=== PATIENT | female | born 1995 | race African-American/Black ===

== ENCOUNTER 2017-05-18 18:05 | Emergency (ER) | payer BC ==
[~2017-05-18] VITALS: Ht 165.1 cm; Wt 53.4 kg
[~2017-05-18 18:05] MED LIST: AMOXICILLIN500 MG OR; AZITHROMYCIN500 MG PO; BACTRIM DS1 TAB OR; BACTRIM DS1 TAB PO; CIPRO500 MG OR; CIPROFLOXACN500 MG PO; CORTISPORIN OTI10 ML AS; DEPO-PROVER150 MG/ML IM; LORTAB 7.5 PO; NAPROSYN500 MG PO; NITROFUR MAC100 MG PO; NO; NO CURRENT MEDS; NO HOME MEDS; PHENERGAN25 MG/TAB PO; PYRIDIUM200 MG PO; SPRINTEC 2828 DAY PO; ULTRAM50 M1 PO; ZOFRAN4 MG/TAB PO
[2017-05-18] MEDS ORDERED: LISINOPRIL5 MG PO (18:14)
[2017-05-18] MEDS ORDERED: B/P PILL PO (18:15)
[2017-05-18] MEDS ORDERED: [UNRECOGNIZED DRUG - REMARK] PO (18:16)
[2017-05-18 18:49] LABS: HEMATOCRIT 40.3 % (37.0-47.0); HEMOGLOBIN 13.1 g/dl (12.0-16.0); IMMATURE GRANULOCYTES 0.2 % (0.0-1.0); MEAN CELL VOLUME 79.5 fL CALC (80.0-100.0); MEAN CORPUSCULAR HGB 25.8 pG CALC (26.0-32.0); MEAN CORPUSCULAR HGB CONC 32.5 g/L CALC (32.0-36.0); NEUT# 3.86 thou/uL (2.00-7.15); RED BLOOD COUNT 5.07 mill/uL (4.20-5.60); RED CELL DISTRI WIDTH 13.6 % (11.5-15.5)
[2017-05-18 18:53] LABS: URINE BLOOD DIPSTICK NEGATIVE (NEGATIVE); URINE CLARITY CLEAR; URINE COLOR YELLOW; URINE GLUCOSE - DIPSTICK NEGATIVE (NEGATIVE); URINE KETONE 15 mg/dL (NEGATIVE); URINE LEUK ESTERASE NEGATIVE (NEGATIVE); URINE NITRITE - DIPSTICK NEGATIVE (Negative); URINE PROTEIN - DIPSTICK TRACE mg/dL (NEG-TRACE); URINE SPECIFIC GRAVITY >=1.030
[2017-05-18 18:54] LABS: URINE BILIRUBIN - DIPSTICK NEGATIVE (NEGATIVE)
[2017-05-18 19:02] LABS: ALBUMIN 5.1 g/dL (3.2-5.0); ALKALINE PHOSPHATASE 44 u/l (38-126); AMYLASE 123 u/l (30-110); ANION GAP 17 (6-22 (CALC)); BILIRUBIN, TOTAL 1.2 mg/dL (0.0-1.4); BUN 18 mg/dL (7-17); BUN/CREATININE RATIO 26 (12-20 (CALC)); CALCIUM 9.8 mg/dL (8.4-10.2); CARBON DIOXIDE 26 mmol/l (22-30); CHLORIDE 102 mmol/l (95-108); CREATININE 0.7 mg/dL (0.5-1.0); GFR > 60 ML/MIN (>=60 (CALC)); GFR FOR AFR.AMER. > 60 ML/MIN (>=60 (CALC)); GLUCOSE 87 mg/dL (65-105); LIPASE 137 u/l (23-300); POTASSIUM 3.2 mmol/l (3.5-5.1); SGOT/AST 20 u/l (14-36); SGPT/ALT 31 u/l (9-52); SODIUM 141 mmol/l (137-146); TOTAL PROTEIN 8.5 g/dL (6.3-8.2)
[2017-05-18] MEDS ORDERED: PROMETHAZINE25 M1 RE (20:52)
[2017-05-18 21:05] VITALS: BP 118/77
== END 2017-05-18 21:07 | disposition home or self-care (01) | DRG 392 ==
LOC: ED 18:05
DX: K52.9 Noninfective gastroenteritis and colitis, unspecified (principal); I10 Essential (primary) hypertension
CPT/HCPCS: Q9967

== ENCOUNTER 2017-08-24 18:22 | Emergency (ER) | payer SELFPAY ==
[~2017-08-24] VITALS: Ht 165.1 cm; Wt 51.6 kg
[~2017-08-24 18:22] MED LIST changes: +B/P PILL PO; +LISINOPRIL5 MG PO; +PROMETHAZINE25 M1 RE; +[UNRECOGNIZED DRUG - REMARK] PO
[2017-08-24] MEDS ORDERED: NAPROXEN DR500 MG PO (20:00)
[2017-08-24] MEDS ORDERED: KEFLEX500 MG PO (20:12)
[2017-08-24 20:13] VITALS: BP 119/73
== END 2017-08-24 20:15 | disposition home or self-care (01) | DRG 605 ==
LOC: ED 18:22
DX: S51.011A Laceration without foreign body of right elbow, initial encounter (principal); M25.511 Pain in right shoulder; M25.531 Pain in right wrist; M79.641 Pain in right hand; I10 Essential (primary) hypertension; W13.4XXA Fall from, out of or through window, initial encounter; Y93.89 Activity, other specified; Y92.009 Unspecified place in unspecified non-institutional (private) residence as the place of occurrence of the external cause

== ENCOUNTER 2018-01-12 01:51 | Emergency (ER) | payer SELFPAY ==
[~2018-01-12] VITALS: Ht 165.1 cm; Wt 53.6 kg
[~2018-01-12 01:51] MED LIST changes: +KEFLEX500 MG PO; +NAPROXEN DR500 MG PO
[2018-01-12 02:46] VITALS: BP 130/82
== END 2018-01-12 02:59 | disposition home or self-care (01) | DRG 103 ==
LOC: ED 01:51
DX: R51 Headache (principal); I10 Essential (primary) hypertension

== ENCOUNTER 2018-01-14 23:46 | Emergency (ER) | payer SELFPAY ==
[~2018-01-14] VITALS: Ht 165.1 cm; Wt 55.9 kg
[2018-01-15 00:16] LABS: URINE BILIRUBIN - DIPSTICK NEGATIVE (NEGATIVE); URINE BLOOD DIPSTICK NEGATIVE (NEGATIVE); URINE COLOR YELLOW; URINE GLUCOSE - DIPSTICK NEGATIVE (NEGATIVE); URINE KETONE NEGATIVE (NEGATIVE); URINE LEUK ESTERASE NEGATIVE (NEGATIVE); URINE NITRITE - DIPSTICK NEGATIVE (Negative); URINE PROTEIN - DIPSTICK NEGATIVE (NEG-TRACE); URINE UROBILINOGEN - DIPSTICK 0.2 E.U./dL (0.2)
[2018-01-15 00:24] LABS: URINE CLARITY CLEAR
[2018-01-15 01:39] LABS: HEMATOCRIT 35.9 % (37.0-47.0); HEMOGLOBIN 11.2 g/dl (12.0-16.0); MEAN CELL VOLUME 79.4 fL CALC (80.0-100.0); MEAN CORPUSCULAR HGB 24.8 pG CALC (26.0-32.0); MEAN CORPUSCULAR HGB CONC 31.2 g/L CALC (32.0-36.0); NEUT# 2.43 thou/uL (2.00-7.15); RED BLOOD COUNT 4.52 mill/uL (4.20-5.60); RED CELL DISTRI WIDTH 15.2 % (11.5-15.5)
[2018-01-15 01:53] LABS: ALBUMIN 4.8 g/dL (3.2-5.0); ALKALINE PHOSPHATASE 48 u/l (38-126); AMYLASE 137 u/l (30-110); BILIRUBIN, TOTAL 0.5 mg/dL (0.0-1.4); BUN 13 mg/dL (7-17); BUN/CREATININE RATIO 17 (12-20 (CALC)); CARBON DIOXIDE 25 mmol/l (22-30); CHLORIDE 105 mmol/l (95-108); CREATININE 0.7 mg/dL (0.5-1.0); GFR > 60 ML/MIN (>=60 (CALC)); GFR FOR AFR.AMER. > 60 ML/MIN (>=60 (CALC)); LIPASE 142 u/l (23-300); SGPT/ALT 28 u/l (9-52); SODIUM 143 mmol/l (137-146); TOTAL PROTEIN 8.2 g/dL (6.3-8.2)
[2018-01-15 02:00] VITALS: BP 112/67
[2018-01-15 02:08] LABS: ANION GAP 17 (6-22 (CALC)); POTASSIUM 3.9 mmol/l (3.5-5.1); SGOT/AST 36 u/l (14-36)
== END 2018-01-15 02:24 | disposition home or self-care (01) | DRG 392 ==
LOC: ED 23:46
PROVIDERS: Emergency Medicine
DX: R11.10 Vomiting, unspecified (principal); I10 Essential (primary) hypertension

== ENCOUNTER 2018-03-12 17:28 | Emergency (ER) | payer OTHER ==
[~2018-03-12] VITALS: Ht 165.1 cm; Wt 55.8 kg
[2018-03-12 18:30] LABS: IMMATURE GRANULOCYTES 0.2 % (0.0-1.0); MEAN CELL VOLUME 79.4 fL CALC (80.0-100.0); MEAN CORPUSCULAR HGB 24.9 pG CALC (26.0-32.0); MEAN CORPUSCULAR HGB CONC 31.4 g/L CALC (32.0-36.0); NEUT# 2.31 thou/uL (2.00-7.15); RED BLOOD COUNT 4.41 mill/uL (4.20-5.60); RED CELL DISTRI WIDTH 15.2 % (11.5-15.5)
[2018-03-12 18:42] LABS: ANION GAP 16 (6-22 (CALC)); BUN 15 mg/dL (7-17); BUN/CREATININE RATIO 20 (12-20 (CALC)); CARBON DIOXIDE 23 mmol/l (22-30); CHLORIDE 106 mmol/l (95-108); CREATININE 0.8 mg/dL (0.5-1.0); GFR > 60 ML/MIN (>=60 (CALC)); GFR FOR AFR.AMER. > 60 ML/MIN (>=60 (CALC)); POTASSIUM 3.8 mmol/l (3.5-5.1); SODIUM 141 mmol/l (137-146)
[2018-03-12 19:37] LABS: BARBITURATES NEGATIVE (NEGATIVE); COCAINE NEGATIVE (NEGATIVE); METHADONE NEGATIVE (NEGATIVE); OXCYCODONE NEGATIVE (NEGATIVE); TETRAHYDROCANNABIONOL NEGATIVE (NEGATIVE); TRICYLIC ANTIDEPRESSANTS NEGATIVE (NEGATIVE)
[2018-03-12 21:02] VITALS: BP 112/63
== END 2018-03-12 21:00 | disposition home or self-care (01) | DRG 103 ==
LOC: ED 17:28
PROVIDERS: Family Medicine
DX: G43.909 Migraine, unspecified, not intractable, without status migrainosus (principal); R07.9 Chest pain, unspecified; I10 Essential (primary) hypertension
CPT/HCPCS: Q9967

== ENCOUNTER 2018-05-16 08:33 | Emergency (ER) | payer SELFPAY ==
[~2018-05-16] VITALS: Ht 165.1 cm; Wt 60.0 kg
[2018-05-16 09:20] LABS: HEMATOCRIT 39.4 % (37.0-47.0); HEMOGLOBIN 12.5 g/dl (12.0-16.0); MEAN CELL VOLUME 80.6 fL CALC (80.0-100.0); MEAN CORPUSCULAR HGB 25.6 pG CALC (26.0-32.0); MEAN CORPUSCULAR HGB CONC 31.7 g/L CALC (32.0-36.0); NEUT# 1.56 thou/uL (2.00-7.15); RED BLOOD COUNT 4.89 mill/uL (4.20-5.60); RED CELL DISTRI WIDTH 14.5 % (11.5-15.5)
[2018-05-16 09:21] LABS: URINE BILIRUBIN - DIPSTICK NEGATIVE (NEGATIVE); URINE BLOOD DIPSTICK NEGATIVE (NEGATIVE); URINE COLOR YELLOW; URINE GLUCOSE - DIPSTICK NEGATIVE (NEGATIVE); URINE KETONE NEGATIVE (NEGATIVE); URINE LEUK ESTERASE NEGATIVE (NEGATIVE); URINE NITRITE - DIPSTICK NEGATIVE (Negative); URINE PROTEIN - DIPSTICK NEGATIVE (NEG-TRACE); URINE UROBILINOGEN - DIPSTICK 0.2 E.U./dL (0.2)
[2018-05-16 09:22] LABS: URINE CLARITY CLEAR
[2018-05-16 09:28] LABS: ALBUMIN 4.4 g/dL (3.2-5.0); ALKALINE PHOSPHATASE 43 u/l (38-126); ANION GAP 15 (6-22 (CALC)); BILIRUBIN, TOTAL 0.5 mg/dL (0.0-1.4); BUN 15 mg/dL (7-17); BUN/CREATININE RATIO 23 (12-20 (CALC)); CARBON DIOXIDE 26 mmol/l (22-30); CHLORIDE 104 mmol/l (95-108); CREATININE 0.7 mg/dL (0.5-1.0); GFR > 60 ML/MIN (>=60 (CALC)); GFR FOR AFR.AMER. > 60 ML/MIN (>=60 (CALC)); POTASSIUM 4.1 mmol/l (3.5-5.1); SGOT/AST 20 u/l (14-36); SGPT/ALT 31 u/l (9-52); SODIUM 141 mmol/l (137-146); TOTAL PROTEIN 7.7 g/dL (6.3-8.2)
[2018-05-16 11:57] VITALS: BP 110/74
== END 2018-05-16 12:23 | disposition home or self-care (01) | DRG 392 ==
LOC: ED 08:33
PROVIDERS: Emergency Medicine
DX: R10.2 Pelvic and perineal pain (principal)

== ENCOUNTER 2018-12-19 23:56 | Emergency (ER) | payer SELFPAY ==
[~2018-12-19] VITALS: Ht 165.1 cm; Wt 56.0 kg
[2018-12-20] MEDS ORDERED: AMOXICILLIN500 MG PO (01:19)
[2018-12-20 01:20] VITALS: BP 127/80
== END 2018-12-20 01:25 | disposition home or self-care (01) | DRG 153 ==
LOC: ED 23:56
DX: J02.9 Acute pharyngitis, unspecified (principal); I10 Essential (primary) hypertension

== ENCOUNTER 2019-01-31 20:01 | Emergency (ER) | payer SELFPAY ==
[~2019-01-31] VITALS: Ht 165.1 cm; Wt 60.4 kg
[~2019-01-31 20:01] MED LIST changes: +AMOXICILLIN500 MG PO
[2019-01-31 21:17] LABS: HEMATOCRIT 36.5 % (37.0-47.0); HEMOGLOBIN 11.3 g/dl (12.0-16.0); IMMATURE GRANULOCYTES 0.3 % (0.0-5.0); MEAN CELL VOLUME 79.2 fL CALC (80.0-100.0); MEAN CORPUSCULAR HGB 24.5 pG CALC (26.0-32.0); NEUT# 6.67 thou/uL (2.00-7.15); RED BLOOD COUNT 4.61 mill/uL (4.20-5.60); RED CELL DISTRI WIDTH 14.9 % (11.5-15.5)
[2019-01-31 21:19] LABS: URINE BILIRUBIN - DIPSTICK NEGATIVE (NEGATIVE); URINE BLOOD DIPSTICK NEGATIVE (NEGATIVE); URINE COLOR YELLOW; URINE GLUCOSE - DIPSTICK NEGATIVE (NEGATIVE); URINE KETONE NEGATIVE (NEGATIVE); URINE LEUK ESTERASE NEGATIVE (NEGATIVE); URINE NITRITE - DIPSTICK NEGATIVE (Negative); URINE PH 6.5 (4.5-8.0); URINE PROTEIN - DIPSTICK NEGATIVE (NEG-TRACE); URINE SPECIFIC GRAVITY 1.015; URINE UROBILINOGEN - DIPSTICK 0.2 E.U./dL (0.2)
[2019-01-31 21:32] LABS: ALBUMIN 4.7 g/dL (3.2-5.0); ALKALINE PHOSPHATASE 52 u/l (38-126); AMYLASE 158 u/l (30-110); ANION GAP 14 (6-22 (CALC)); BILIRUBIN, TOTAL 0.4 mg/dL (0.0-1.4); BUN 17 mg/dL (7-17); BUN/CREATININE RATIO 25 (12-20 (CALC)); CARBON DIOXIDE 26 mmol/l (22-30); CHLORIDE 104 mmol/l (95-108); CREATININE 0.7 mg/dL (0.5-1.0); GFR > 60 ML/MIN (>=60 (CALC)); GFR FOR AFR.AMER. > 60 ML/MIN (>=60 (CALC)); LIPASE 181 u/l (23-300); POTASSIUM 4.1 mmol/l (3.5-5.1); SGOT/AST 65 u/l (14-36); SODIUM 139 mmol/l (137-146)
[2019-01-31 23:30] VITALS: BP 106/52
== END 2019-01-31 23:50 | disposition home or self-care (01) | DRG 392 ==
LOC: ED 20:01
PROVIDERS: Emergency Medicine
DX: R10.31 Right lower quadrant pain (principal); N83.201 Unspecified ovarian cyst, right side; R11.2 Nausea with vomiting, unspecified
CPT/HCPCS: Q9967

== ENCOUNTER 2019-09-03 09:39 | Emergency (ER) | payer SELFPAY ==
[~2019-09-03] VITALS: Ht 165.1 cm; Wt 62.0 kg
[2019-09-03 10:31] LABS: URINE BILIRUBIN - DIPSTICK NEGATIVE (NEGATIVE); URINE BLOOD DIPSTICK NEGATIVE (NEGATIVE); URINE COLOR YELLOW; URINE GLUCOSE - DIPSTICK NEGATIVE (NEGATIVE); URINE KETONE NEGATIVE (NEGATIVE); URINE LEUK ESTERASE TRACE (NEGATIVE); URINE NITRITE - DIPSTICK NEGATIVE (Negative); URINE PH 5.5 (4.5-8.0); URINE PROTEIN - DIPSTICK TRACE mg/dL (NEG-TRACE); URINE SPECIFIC GRAVITY 1.025
[2019-09-03 10:33] LABS: HEMATOCRIT 34.9 % (37.0-47.0); HEMOGLOBIN 10.8 g/dl (12.0-16.0); IMMATURE GRANULOCYTES 0.1 % (0.0-5.0); MEAN CORPUSCULAR HGB 22.5 pG CALC (26.0-32.0); MEAN CORPUSCULAR HGB CONC 30.9 g/L CALC (32.0-36.0); NEUT# 5.31 thou/uL (2.00-7.15); RED BLOOD COUNT 4.79 mill/uL (4.20-5.60); RED CELL DISTRI WIDTH 16.6 % (11.5-15.5)
[2019-09-03 10:36] LABS: MEAN CELL VOLUME 72.9 fL CALC (80.0-100.0)
[2019-09-03 10:56] LABS: ALBUMIN 4.6 g/dL (3.2-5.0); ALKALINE PHOSPHATASE 53 u/l (38-126); ANION GAP 14 (6-22 (CALC)); BILIRUBIN, TOTAL 0.9 mg/dL (0.0-1.4); BUN 13 mg/dL (7-17); BUN/CREATININE RATIO 19 (12-20 (CALC)); CARBON DIOXIDE 26 mmol/l (22-30); CHLORIDE 102 mmol/l (95-108); CREATININE 0.7 mg/dL (0.5-1.0); GFR > 60 ML/MIN (>=60 (CALC)); GFR FOR AFR.AMER. > 60 ML/MIN (>=60 (CALC)); LIPASE 115 u/l (23-300); POTASSIUM 3.7 mmol/l (3.5-5.1); SGOT/AST 22 u/l (14-36); SODIUM 138 mmol/l (137-146); TOTAL PROTEIN 8.2 g/dL (6.3-8.2)
[2019-09-03] MEDS ORDERED: ONDANSETRON4 MG PO (11:21)
[2019-09-03 11:49] VITALS: BP 117/82
== END 2019-09-03 12:00 | disposition home or self-care (01) | DRG 392 ==
LOC: ED 09:39
DX: R11.2 Nausea with vomiting, unspecified (principal); R19.7 Diarrhea, unspecified; I10 Essential (primary) hypertension

== ENCOUNTER 2019-11-30 | Emergency (ER) | payer OTHER ==
[~2019-11-30] MED LIST changes: +ONDANSETRON4 MG PO
[2019-11-30 13:46] LABS: URINE BILIRUBIN - DIPSTICK NEGATIVE (NEGATIVE); URINE BLOOD DIPSTICK NEGATIVE (NEGATIVE); URINE COLOR YELLOW; URINE GLUCOSE - DIPSTICK NEGATIVE (NEGATIVE); URINE KETONE NEGATIVE (NEGATIVE); URINE LEUK ESTERASE NEGATIVE (NEGATIVE); URINE NITRITE - DIPSTICK NEGATIVE (Negative); URINE PROTEIN - DIPSTICK NEGATIVE (NEG-TRACE); URINE SPECIFIC GRAVITY 1.025
== END 2019-11-30 16:57 | disposition left against medical advice (07) | DRG 392 ==
PROVIDERS: Family Medicine
DX: R10.2 Pelvic and perineal pain (principal); I10 Essential (primary) hypertension; Z91.19 Patient's noncompliance with other medical treatment and regimen

== ENCOUNTER 2020-04-26 20:53 | Emergency (ER) | payer OTHER ==
[~2020-04-26] VITALS: Ht 165.1 cm; Wt 61.0 kg
[2020-04-26 21:45] VITALS: BP 135/85
== END 2020-04-26 21:45 | disposition home or self-care (01) | DRG 951 ==
LOC: ED 20:53
DX: Z20.828 Contact with and (suspected) exposure to other viral communicable diseases (principal)

== ENCOUNTER 2020-06-28 17:56 | Emergency (ER) | payer OTHER ==
[~2020-06-28] VITALS: Ht 165.1 cm; Wt 62.0 kg
[2020-06-28 20:15] VITALS: BP 120/79
--- NOTE | 2020-07-02 08:52 | NUR ---
Notified patient of positive Covid results. Patient denies symptoms at this time. Advised patient to quarantine at home until contacted by [facility] with further instructions. Advised patient to return to ED with difficulty breathing or other urgent needs. Patient verbalized understanding.
== END 2020-06-28 20:20 | disposition home or self-care (01) | DRG 179 ==
LOC: ED 17:56
DX: U07.1 COVID-19 (principal); I10 Essential (primary) hypertension

== ENCOUNTER 2021-06-13 09:39 | Emergency (ER) | payer OTHER ==
[2021-06-13 10:43] LABS: HEMATOCRIT 31.7 % (37.0-47.0); HEMOGLOBIN 9.2 g/dl (12.0-16.0); IMMATURE GRANULOCYTES 0.1 % (0.0-5.0); MEAN CORPUSCULAR HGB 19.5 pG CALC (26.0-32.0); NEUT# 8.02 thou/uL (2.00-7.15); RED BLOOD COUNT 4.72 mill/uL (4.20-5.60); RED CELL DISTRI WIDTH 20.3 % (11.5-15.5)
[2021-06-13 11:08] LABS: MEAN CELL VOLUME 67.2 fL CALC (80.0-100.0)
[2021-06-13 11:13] LABS: URINE BILIRUBIN - DIPSTICK NEGATIVE (NEGATIVE); URINE BLOOD DIPSTICK LARGE (NEGATIVE); URINE GLUCOSE - DIPSTICK NEGATIVE (NEGATIVE); URINE KETONE NEGATIVE (NEGATIVE); URINE LEUK ESTERASE NEGATIVE (NEGATIVE); URINE PROTEIN - DIPSTICK 30 mg/dL (NEG-TRACE); URINE SPECIFIC GRAVITY >=1.030; URINE UROBILINOGEN - DIPSTICK 0.2 E.U./dL (0.2)
[2021-06-13 11:16] LABS: URINE NITRITE - DIPSTICK NEGATIVE (Negative)
[2021-06-13 11:17] LABS: URINE COLOR DK. YELLOW; URINE EPITHELIAL CELLS FEW EPI/hpf (0-FEW); URINE RBC 50-100 RBC/hpf (0-5); URINE WBC 0-2 WBC/hpf (0-5)
[2021-06-13 11:32] LABS: ALBUMIN 4.5 g/dL (3.2-5.0); ALKALINE PHOSPHATASE 55 u/l (38-126); ANION GAP 13 (6-22 (CALC)); BUN 14 mg/dL (7-17); BUN/CREATININE RATIO 21 (12-20 (CALC)); CARBON DIOXIDE 24 mmol/l (22-30); CHLORIDE 104 mmol/l (95-108); CREATININE 0.7 mg/dL (0.5-1.0); GFR > 60 ML/MIN (>=60 (CALC)); GFR FOR AFR.AMER. > 60 ML/MIN (>=60 (CALC)); POTASSIUM 3.6 mmol/l (3.5-5.1); SGOT/AST 28 u/l (14-36); SODIUM 138 mmol/l (137-146); TOTAL PROTEIN 8.3 g/dL (6.3-8.2)
[2021-06-13 11:35] LABS: BILIRUBIN, TOTAL 0.3 mg/dL (0.0-1.4)
[2021-06-13] MEDS ORDERED: NAPROXEN EC500 MG PO (13:15)
[2021-06-13 13:27] VITALS: BP 145/80
== END 2021-06-13 13:28 | disposition home or self-care (01) | DRG 761 ==
LOC: ED 09:39
DX: N83.02 Follicular cyst of left ovary (principal); N83.01 Follicular cyst of right ovary; N94.6 Dysmenorrhea, unspecified; I10 Essential (primary) hypertension
CPT/HCPCS: Q9967

== ENCOUNTER 2022-03-03 16:18 | Emergency (ER) | payer OTHER ==
[2022-03-03] VITALS (9 sets, daily range): BP systolic 111–136; BP diastolic 74–90
[~2022-03-03] VITALS: Ht 165.1 cm; Wt 61.6 kg
[~2022-03-03 16:18] MED LIST changes: +NAPROXEN EC500 MG PO
[2022-03-03 16:48] LABS: HEMATOCRIT 30.3 % (37.0-47.0); HEMOGLOBIN 8.8 g/dl (12.0-16.0); MEAN CELL VOLUME 64.9 fL CALC (80.0-100.0); MEAN CORPUSCULAR HGB 18.8 pG CALC (26.0-32.0); NEUT# 2.39 thou/uL (2.00-7.15); RED BLOOD COUNT 4.67 mill/uL (4.20-5.60); RED CELL DISTRI WIDTH 20.7 % (11.5-15.5)
[2022-03-03 17:00] LABS: ALBUMIN 4.7 g/dL (3.2-5.0); ALKALINE PHOSPHATASE 53 u/l (38-126); ANION GAP 15 (6-22 (CALC)); BILIRUBIN, TOTAL 0.4 mg/dL (0.0-1.4); BUN 12 mg/dL (7-17); BUN/CREATININE RATIO 18 (12-20 (CALC)); CARBON DIOXIDE 21 mmol/l (22-30); CHLORIDE 106 mmol/l (95-108); CREATININE 0.7 mg/dL (0.5-1.0); GFR > 60 ML/MIN (>=60 (CALC)); GFR FOR AFR.AMER. > 60 ML/MIN (>=60 (CALC)); LIPASE 160 u/l (23-300); SGOT/AST 23 u/l (14-36); SODIUM 138 mmol/l (137-146); TOTAL PROTEIN 8.4 g/dL (6.3-8.2)
[2022-03-03 17:03] LABS: INTERNATIONAL NORMALIZED RATIO 0.9 RATIO (0.7-1.3); PROTHROMBIN TIME 9.9 SECONDS (9.0-12.5)
[2022-03-03 17:12] LABS: MYOGLOBIN 16 ng/mL (0 - 62)
[2022-03-03 18:35] LABS: URINE BILIRUBIN - DIPSTICK NEGATIVE (NEGATIVE); URINE BLOOD DIPSTICK NEGATIVE (NEGATIVE); URINE COLOR YELLOW; URINE GLUCOSE - DIPSTICK NEGATIVE (NEGATIVE); URINE KETONE NEGATIVE (NEGATIVE); URINE LEUK ESTERASE NEGATIVE (NEGATIVE); URINE PROTEIN - DIPSTICK NEGATIVE (NEG-TRACE); URINE UROBILINOGEN - DIPSTICK 0.2 E.U./dL (0.2)
[2022-03-03 18:36] LABS: URINE NITRITE - DIPSTICK NEGATIVE (Negative)
[2022-03-03] MEDS ORDERED: XANAX0.25 MG PO (18:55)
[2022-03-03] MEDS ORDERED: PROTONIX40 M2 PO (18:55)
== END 2022-03-03 20:41 | disposition home or self-care (01) | DRG 392 ==
LOC: ED 16:18
PROVIDERS: Nurse Practitioner
DX: K21.9 Gastro-esophageal reflux disease without esophagitis (principal); F41.9 Anxiety disorder, unspecified; I10 Essential (primary) hypertension; D64.9 Anemia, unspecified

== ENCOUNTER 2022-11-08 08:29 | Emergency (ER) | payer OTHER ==
[2022-11-08] VITALS (7 sets, daily range): BP systolic 116–128; BP diastolic 77–92
[~2022-11-08] VITALS: Ht 165.1 cm; Wt 60.0 kg
[~2022-11-08 08:29] MED LIST changes: +PROTONIX40 M2 PO; +XANAX0.25 MG PO
[2022-11-08] MEDS ORDERED: DOXY-CAPS100 MG PO (10:12)
[2022-11-08] MEDS ORDERED: PROVENTIL HFA IN (10:12)
[2022-11-08] MEDS ORDERED: PREDNISONE50 MG PO (10:12)
== END 2022-11-08 10:30 | disposition home or self-care (01) | DRG 203 ==
LOC: ED 08:29
DX: J45.901 Unspecified asthma with (acute) exacerbation (principal); J06.9 Acute upper respiratory infection, unspecified

== ENCOUNTER 2024-10-20 04:38 | Emergency (ER) | payer OTHER ==
[~2024-10-20] VITALS: Ht 165.1 cm; Wt 69.0 kg
[~2024-10-20 04:38] MED LIST changes: +DOXY-CAPS100 MG PO; +PREDNISONE50 MG PO; +PROVENTIL HFA IN
[2024-10-20] MEDS ORDERED: ONDANSETRON 4 MG/TAB ODT SL ONE ×2 (04:55→06:05)
[2024-10-20] MEDS ORDERED: ZOFRAN4 MG/TAB PO (05:43)
[2024-10-20 06:19] VITALS: BP 126/80
== END 2024-10-20 06:19 | disposition home or self-care (01) | DRG 392 ==
LOC: ED 04:38
DX: R11.10 Vomiting, unspecified (principal); R19.7 Diarrhea, unspecified; I10 Essential (primary) hypertension; Z20.822 Contact with and (suspected) exposure to COVID-19

== ENCOUNTER 2024-12-26 19:03 | Emergency (ER) | payer OTHER ==
[~2024-12-26] VITALS: Ht 165.1 cm; Wt 66.0 kg
[2024-12-26] MEDS ORDERED: ADDERALL10 MG PO (19:32)
[2024-12-26] MEDS ORDERED: CYPROHEPTAD4 MG PO (19:33)
[2024-12-26] MEDS ORDERED: LAMICTAL100 M1 PO (19:33)
[2024-12-26] MEDS ORDERED: HYDROcodone POLISTIREX/CHLORPH 5 ML UDC PO ONE (20:25)
[2024-12-26] MEDS ORDERED: BENZONATATE200 MG PO (20:33)
[2024-12-26] MEDS ORDERED: guaiFENesin-CODEINE 200-20 MG/10 ML UDC PO ONE (20:55)
[2024-12-26 21:00] VITALS: BP 128/83
== END 2024-12-26 21:00 | disposition home or self-care (01) | DRG 153 ==
LOC: ED 19:03
DX: J06.9 Acute upper respiratory infection, unspecified (principal); I10 Essential (primary) hypertension; Z20.822 Contact with and (suspected) exposure to COVID-19